=== PATIENT | female | born 1965 | race Caucasian/White ===

== ENCOUNTER 2020-08-08 17:34 | Emergency (ER) | payer MEDICARE, OTHER ==
[~2020-08-08] VITALS: Ht 165.1 cm; Wt 67.6 kg
[2020-08-08] MEDS ORDERED: ONDANSETRON ODT 4 MG TAB PO ONE (19:45)
[2020-08-08] MEDS ORDERED: KETOROLAC TROMETH 30 MG/ML 1ML VIAL IV ONE (19:45)
[2020-08-08] MEDS ORDERED: SODIUM CHLORIDE 0.9% 1,000 ML IV ONE (19:45)
[2020-08-08 22:00] VITALS: BP 139/61
[2020-08-08 22:06] LABS: Basophils # (auto) 0.1 10 ^3/uL (0-0.2); Basophils % (auto) 0.5 % (0.0-2.0); Eosinophils # (auto) 0.2 10 ^3/uL (0-0.8); Eosinophils % (auto) 1.7 % (0.0-7.0); Hematocrit 39.3 % (36.0-46.0); Lymphocytes # (auto) 1.7 10 ^3/uL (0.4-5.4); Mean Corpuscular Hemoglobin 28.2 pg (28.0-32.0); Mean Corpuscular Hgb Conc. 33.1 g/dL (32.0-36.0); Mean Corpuscular Volume 85.3 fL (80.0-100.0); Monocytes # (auto) 0.8 10 ^3/uL (0-1.3); Monocytes % (auto) 6.9 % (0.0-12.0); Neutrophils # (auto) 8.7 10 ^3/uL (1.6-8.6); Neutrophils % (auto) 75.9 % (37.0-80.0); Nucleated Red Blood Cells % 0.1 %; Platelet Count (auto) 288 10^3/uL (140-450); Red Cell Distribution Width 16.6 % (11.8-14.3); White Blood Cell 11.4 10^3/uL (4.4-10.8)
[2020-08-08 22:34] LABS: Albumin 3.5 g/dL (3.4-5.0); Calcium 8.6 mg/dL (8.5-10.1)
[2020-08-08 22:38] LABS: BUN/Creatinine Ratio 16.4; Bilirubin, Total 0.2 mg/dL (0.2-1.0); Total Protein 7.1 g/dL (6.4-8.2)
[2020-08-08 22:54] LABS: Urine Bacteria NONE SEEN /hpf (None Seen); Urine Blood 2+ /uL (Negative); Urine Mucus FEW (None Seen); Urine WBC 943 /hpf (0 - 5)
[2020-08-08 23:09] LABS: Amphetamine Screen, Urine POSITIVE (NEGATIVE); Barbiturate Scree,Urine NEGATIVE (NEGATIVE); Benzodiazephine Screen, Urine NEGATIVE (NEGATIVE); Cannabinoid Screen, Urine NEGATIVE (NEGATIVE); Cocaine Screen, Urine NEGATIVE (NEGATIVE)
[2020-08-08 23:16] LABS: Opiate Scree,Urine NEGATIVE (NEGATIVE); Phencyclidine Screen, Urine NEGATIVE (NEGATIVE)
== END 2020-08-08 23:13 | disposition home or self-care (01) ==
LOC: ER 17:34
DX: N20.9 Urinary calculus, unspecified (principal); N10 Acute pyelonephritis; E86.0 Dehydration; J44.9 Chronic obstructive pulmonary disease, unspecified; E11.9 Type 2 diabetes mellitus without complications; F17.210 Nicotine dependence, cigarettes, uncomplicated
CPT/HCPCS: 36415; 74176; 80053; 80307; 81001; 85025; 96361; 96374; 99284; J1885; J7030; Q0162

== ENCOUNTER 2021-08-04 13:28 | Emergency (ER) | payer MEDICARE, MEDICAID ==
[~2021-08-04] VITALS: Ht 160 cm; Wt 63.5 kg
[2021-08-04 17:16] VITALS: BP 137/96
== END 2021-08-04 17:57 | disposition home or self-care (01) ==
LOC: ER 13:28
DX: S92.411A Displaced fracture of proximal phalanx of right great toe, initial encounter for closed fracture (principal); J44.9 Chronic obstructive pulmonary disease, unspecified; E11.9 Type 2 diabetes mellitus without complications; F17.210 Nicotine dependence, cigarettes, uncomplicated; W01.0XXA Fall on same level from slipping, tripping and stumbling without subsequent striking against object, initial encounter; Y93.89 Activity, other specified; Y92.89 Other specified places as the place of occurrence of the external cause; Y99.8 Other external cause status
CPT/HCPCS: 73630

== ENCOUNTER 2022-01-29 09:26 | Day surgery (SDC) | payer MEDICARE, MEDICAID ==
[~2022-01-29] VITALS: Ht 162.6 cm; Wt 68.0 kg
[~2022-01-29 09:26] MED LIST: ACLI1AER2 IN; BENA10TA15 PO; LAM100T PO; LORA-622 PO; METF-370 PO; MOME100A IN; ROSU10TA16 PO; [UNRECOGNIZED DRUG - CODE] TD
[2022-01-29] MEDS ORDERED: PHENYLEPHRINE HCL 10 MG/ML VL IV ONE (09:27)
[2022-01-29] MEDS ORDERED: MEPERIDINE HCL (25 MG/ML) 1ML VIAL ONE (12:43)
[2022-01-29] MEDS ORDERED: fentaNYL CITRATE 100 MCG/2 ML VL ONE (12:43)
[2022-01-29] MEDS ORDERED: MIDAZOLAM HCL 2MG/2ML 2ml VIAL (1mg/ml) ONE (12:44)
[2022-01-29] MEDS ORDERED: BUPIVACAINE 0.25% INJ 50ML VIAL ONE (13:17)
[2022-01-29] MEDS ORDERED: ceFAZolin 1GM VL ONE (13:17)
[2022-01-29] MEDS ORDERED: PROPOFOL 10 MG/ML 20 ML IV ONE (13:27)
[2022-01-29] MEDS ORDERED: DexAMETHasone SOD PHOS 10MG/1ML VIAL INJ ONE (13:27)
[2022-01-29] MEDS ORDERED: ePHEDrine SULFATE 50 MG/ML AMP IV PRN (14:15)
[2022-01-29] MEDS ORDERED: MORPHINE SULFATE 4 MG/ML SYR/VIAL IV PRN (14:15)
[2022-01-29] MEDS ORDERED: ONDANSETRON HCL 4 MG/2 ML VIAL IV PRN (14:15)
[2022-01-29] MEDS ORDERED: MIDAZOLAM HCL 2MG/2ML 2ml VIAL (1mg/ml) IV PRN (14:15)
[2022-01-29] MEDS ORDERED: LABETALOL HCL 5 MG/ML 4ML SYRINGE IV PRN (14:15)
[2022-01-29] MEDS: HYDROmorphone HCL 2 MG/ML VL/or syr IV PRN ×2 (15:06→15:16)
[2022-01-29 16:00] VITALS: BP 150/94
== END 2022-01-29 16:10 | disposition home or self-care (01) ==
LOC: SUR 09:26
PROVIDERS: ATTEND Urology
DX: N20.0 Calculus of kidney (principal); I10 Essential (primary) hypertension; E11.9 Type 2 diabetes mellitus without complications; G47.00 Insomnia, unspecified; M10.9 Gout, unspecified; F17.200 Nicotine dependence, unspecified, uncomplicated; Z98.890 Other specified postprocedural states; Z79.899 Other long term (current) drug therapy; Z95.5 Presence of coronary angioplasty implant and graft; Z20.822 Contact with and (suspected) exposure to COVID-19
CPT/HCPCS: 52356; 74018; 82962; J0690; J1100; J1170; J2175; J2250; J2370; J2405; J2704; J3010; J3490; U0003; 76000

== ENCOUNTER 2022-06-11 06:18 | Day surgery (SDC) | payer MEDICARE, MEDICAID ==
[2022-06-09 13:47] LABS: Basophils # (auto) 0.1 10 ^3/uL (0-0.2); Basophils % (auto) 0.9 % (0.0-2.0); Eosinophils # (auto) 0.1 10 ^3/uL (0-0.8); Eosinophils % (auto) 1.4 % (0.0-7.0); Hematocrit 37.6 % (36.0-46.0); Hemoglobin 12.4 g/dL (12.2-16.2); Lymphocytes # (auto) 2.7 10 ^3/uL (0.4-5.4); Lymphocytes % (auto) 28.4 % (10.0-50.0); Mean Corpuscular Hemoglobin 27.3 pg (28.0-32.0); Mean Corpuscular Hgb Conc. 32.9 g/dL (32.0-36.0); Mean Corpuscular Volume 82.9 fL (80.0-100.0); Monocytes # (auto) 0.6 10 ^3/uL (0-1.3); Monocytes % (auto) 6.3 % (0.0-12.0); Nucleated Red Blood Cells % 0.1 %; Red Blood Cells 4.54 10^6/uL (4.0-5.20); Red Cell Distribution Width 17.2 % (11.8-14.3); Urine Bacteria FEW /hpf (None Seen); Urine Blood Negative /uL (Negative); Urine Specific Gravity 1.008 (1.001-1.035); Urine WBC 129 /hpf (0 - 5); White Blood Cell 9.4 10^3/uL (4.4-10.8)
[2022-06-09 14:08] LABS: Albumin 3.8 g/dL (3.4-5.0); BUN/Creatinine Ratio 12.7; Bilirubin, Total 0.4 mg/dL (0.2-1.0); Calcium 8.8 mg/dL (8.5-10.1); INR 0.96 (0.9-1.15); Partial Thromboplastin Time 26.8 sec (24.6-33.4); Potassium 3.3 mmol/L (3.5-5.1)
[~2022-06-11] VITALS: Ht 165.1 cm; Wt 63.5 kg
[~2022-06-11 06:18] MED LIST changes: -LAM100T PO; +LAMO200T34 PO
[2022-06-11] MEDS ORDERED: IOHEXOL 300 MG/ML 100ML BOTTLE IJ ONE (06:46)
[2022-06-11] MEDS ORDERED: ceFAZolin 1GM/50ML 100 ML IV ONE (06:51)
[2022-06-11] MEDS ORDERED: MIDAZOLAM HCL 2MG/2ML 2ml VIAL (1mg/ml) ONE (07:29)
[2022-06-11] MEDS ORDERED: MEPERIDINE HCL (50 MG/ML) 1 ML VIAL ONE (07:29)
[2022-06-11] MEDS ORDERED: fentaNYL CITRATE 100 MCG/2 ML VL ONE (07:29)
[2022-06-11] MEDS ORDERED: LIDOCAINE 2% JELLY 11ml (GLYDO) ONE (07:44)
[2022-06-11] MEDS ORDERED: ACCU-CHEK COMFORT CURVE STRIP VI ONE (08:00)
[2022-06-11] MEDS ORDERED: MIDAZOLAM HCL 2MG/2ML 2ml VIAL (1mg/ml) IV PRN (08:00)
[2022-06-11] MEDS ORDERED: HYDROmorphone HCL 2 MG/ML VL/or syr IV PRN (08:00)
[2022-06-11] MEDS ORDERED: ePHEDrine SULFATE 50 MG/ML AMP IV PRN (08:00)
[2022-06-11] MEDS ORDERED: LABETALOL HCL 5 MG/ML 4ML SYRINGE IV PRN (08:00)
[2022-06-11] MEDS ORDERED: ONDANSETRON HCL 4 MG/2 ML VIAL IV PRN (08:00)
[2022-06-11] MEDS ORDERED: MORPHINE SULFATE 4 MG/ML SYR/VIAL IV PRN (08:00)
[2022-06-11] MEDS ORDERED: PROPOFOL 10 MG/ML 20 ML IV ONE (08:33)
[2022-06-11] MEDS ORDERED: DexAMETHasone SOD PHOS 10MG/1ML VIAL INJ ONE (08:33)
[2022-06-11] MEDS ORDERED: ONDANSETRON HCL 4 MG/2 ML VIAL ONE (08:34)
[2022-06-11 10:00] VITALS: BP 159/86
== END 2022-06-11 10:13 | disposition home or self-care (01) ==
LOC: SUR 06:18
PROVIDERS: ATTEND Urology
DX: N13.2 Hydronephrosis with renal and ureteral calculous obstruction (principal); N13.1 Hydronephrosis with ureteral stricture, not elsewhere classified; E11.9 Type 2 diabetes mellitus without complications; J44.9 Chronic obstructive pulmonary disease, unspecified; I10 Essential (primary) hypertension; E78.5 Hyperlipidemia, unspecified; Z79.84 Long term (current) use of oral hypoglycemic drugs; Z79.899 Other long term (current) drug therapy; Z98.890 Other specified postprocedural states; Z88.2 Allergy status to sulfonamides; Z20.822 Contact with and (suspected) exposure to COVID-19
CPT/HCPCS: 36415; 52356; 74018; 76000; 80053; 81001; 82962; 85025; 85610; 85730; 87086; 88300; C2617; J0690; J1100; J2175; J2250; J2405; J2704; J3010; Q9967; U0003